=== PATIENT | male | born 1940 | race Caucasian/White ===

== ENCOUNTER → 2020-03-02 | Outpatient (CLI) | payer OTHER ==
[~2020-03-02] MED LIST: ALLERGY RELIEF180 MG PO; ALLOPURINOL 30300 M2 PO; ASPIR 8181 MG PO; COLACE100 MG PO; FENOFIBRATE160 MG PO; FISH OIL 1,2001 EAC5 PO; FLEXERIL PO; FLOMAX0.4 MG PO; INDERAL60 MG PO; MULTI VITAMIN1 EACH PO; OMEPRAZOLE 20 M20 M1 PO; PHENERGAN 25 MG25 M1 PO; TOPROL XL25 MG PO
[2020-03-02 08:08] LABS: CREATININE 0.9 mg/dL (0.6-1.3)
== END ==
LOC: M.LAB 07:35 → M.CT 09:00
PROVIDERS: ATTEND Internal Medicine Cardiovascular Disease
DX: Z01.812 Encounter for preprocedural laboratory examination (principal); I71.2 Thoracic aortic aneurysm, without rupture; I51.7 Cardiomegaly; J98.11 Atelectasis; K76.0 Fatty (change of) liver, not elsewhere classified

== ENCOUNTER 2020-05-28 07:11 | Emergency (ER) | payer OTHER ==
[~2020-05-28] VITALS: Ht 180.3 cm; Wt 86.2 kg
[2020-05-28] MEDS ORDERED: MELOXICAM15 MG PO (07:24)
[2020-05-28] MEDS ORDERED: LIPITOR40 MG PO (07:24)
[2020-05-28 07:43] LABS: ABSOLUTE BASOPHILS 0.1 thou/uL (0.0-0.2); ABSOLUTE EOSINOPHILS 0.1 thou/uL (0.0-0.7); ABSOLUTE LYMPHOCYTES 5.4 thou/uL (0.8-5.3); ABSOLUTE MONOCYTES 0.4 thou/uL (0.0-1.2); ABSOLUTE NEUTROPHILS 6.2 thou/uL (1.6-8.1); BASOPHILS 0.7 %; EOSINOPHILS 1.1 %; HEMOGLOBIN 14.9 gm/dL (14.0-18.0); LYMPHOCYTES 44.2 %; MCH 30.5 pg (26.0-34.0); MCV 92.4 fL (80.0-100.0); MONOCYTES 3.5 %; MPV 9.6 fl. (7.2-11.1); NUCLEATED RBCS 0 /100WBC; PLATELET COUNT* 193 thou/uL (150-400); POLYS 50.5 %; RBC 4.88 mil/uL (4.50-6.00); RDW-CV 15.2 % (10.5-14.5); WBC 12.2 thou/uL (4.0-11.0)
[2020-05-28 07:53] LABS: CALCIUM 8.8 mg/dL (8.5-10.1); CREATININE 1.4 mg/dL (0.6-1.3); POTASSIUM 4.3 mmol/L (3.5-5.1)
[2020-05-28 07:56] LABS: APTT 26.7 Seconds (25.0-31.3); PROTIME 10.9 Seconds (9.20-11.50)
[2020-05-28 07:57] LABS: ALBUMIN 3.6 g/dL (3.4-5.0); TOTAL BILIRUBIN 0.4 mg/dL (<0.1-1.0)
[2020-05-28 09:30] VITALS: BP 114/84
--- NOTE | 2020-05-29 15:04 | EKG ---
[place] [address] ELECTROCARDIOGRAM REPORT Name: CASA BLACKMAN Room: 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: [facility] : 1940 Requested By: Ubaldo Ambriz Order Number: [id number] MD: Jorge A Paulino Measurements Intervals [place] Rate: 69 P: -17 KS: 200 QRS: -55 QRSD: 139 T: -6 QT: 438 QTc: 470 Interpretive Statements Sinus rhythm RBBB and LAFB Compared to ECG 09/15/2015 12:50:55 Left anterior fascicular block now present Sinus bradycardia no longer present Electronically Signed On 05-29-2020 15:04:04 [employer] by Jorge A Paulino [email or web address] <ELECTRONICALLY SIGNED> By: Jorge A Paulino MD, FACC 05/29/20 1504 0729 0729 Jorge A Paulino MD, [facility] /EPI
== END 2020-05-28 09:30 | disposition short-term general hospital (02) ==
LOC: M.ERS 07:11
PROVIDERS: Family Medicine
DX: S00.83XA Contusion of other part of head, initial encounter (principal); R55 Syncope and collapse; Z20.828 Contact with and (suspected) exposure to other viral communicable diseases; I10 Essential (primary) hypertension; I25.10 Atherosclerotic heart disease of native coronary artery without angina pectoris; Z95.1 Presence of aortocoronary bypass graft; Z88.0 Allergy status to penicillin; W22.8XXA Striking against or struck by other objects, initial encounter; Y93.89 Activity, other specified; Y92.89 Other specified places as the place of occurrence of the external cause; Y99.8 Other external cause status